=== PATIENT | male | born 1990 | race Caucasian/White ===

== ENCOUNTER → 2018-06-26 | Outpatient (CLI) | payer BC ==
--- NOTE | 2018-06-26 13:42 | Diagnostic Imaging Report ---
EXAMINATION: Right upper quadrant ultrasound CLINICAL INDICATION: Abdominal pain COMPARISON: DISCUSSION: Transverse and longitudinal images of the right upper quadrant were obtained. The liver is normal in size measuring 15.6centimeters in length in the right midclavicular line and shows normal echogenicity. No focal masses are seen in the liver. There is no intrahepatic biliary dilatation. The common bile duct measures 0.3 cm in caliber. The main portal vein is normal in caliber and measures 1.2 cm with normal hepatopetal flow. The gallbladder is normal in appearance without stones, wall thickening or pericholecystic fluid. The sonographic Brock's sign is negative. The visualized portions of the pancreatic body and proximal tail are unremarkable. The right kidney measures 12.5 centimeters in length. There is normal renal cortical echogenicity and no hydronephrosis, mass or shadowing calculi. IVC is patent. Abdominal aorta is nonaneurysmal. No free fluid is seen. IMPRESSION: Unremarkable right upper quadrant ultrasound. Signed by: Dr. Jamari Babin M.D. on 06/26/2018 1:38 PM
== END ==
LOC: US 10:28
PROVIDERS: ATTEND Emergency Medicine
DX: R10.9 Unspecified abdominal pain (principal)
CPT/HCPCS: 76705